=== PATIENT | male | born 1965 | race Two or more races ===

== ENCOUNTER 2019-02-19 22:50 | Emergency (ER) | payer OTHER ==
[~2019-02-19] VITALS: Ht 172.7 cm; Wt 61.7 kg
[2019-02-19 23:51] VITALS: BP 131/81
[2019-02-19] MEDS ORDERED: GELATIN SPONGE,ABSORBABLE 1 SPONGE SPONGE TP ONE (23:55)
[2019-02-19] MEDS ORDERED: KETOROLAC TROMETHAMINE INJ 60 MG/2 ML VIAL IM ONE (23:56)
[2019-02-20] MEDS ORDERED: KETOROLAC TROMETHAMINE INJ 60 MG/2 ML VIAL IM ONE
[2019-02-20] MEDS ORDERED: TDAP [DIPH/PERTUSSIS/TET] 0.5 ML VIAL IM ONE ×2 (00:10→00:30)
--- NOTE | 2019-02-20 00:19 | NUR ---
Patient discharged to home in stable condition. Written and verbal after care instructions given. Patient verbalizes understanding of instruction. Pt ambulatory with a steady gait
== END 2019-02-20 00:20 | disposition home or self-care (01) ==
LOC: ER 22:55
DX: S61.210A Laceration without foreign body of right index finger without damage to nail, initial encounter (principal); M19.90 Unspecified osteoarthritis, unspecified site; W25.XXXA Contact with sharp glass, initial encounter; Y93.89 Activity, other specified; Y92.89 Other specified places as the place of occurrence of the external cause; Y99.8 Other external cause status
CPT/HCPCS: 90471; 90715; 96372; 99283; A6403; J1885

== ENCOUNTER 2019-03-22 10:25 | Emergency (ER) | payer OTHER ==
[~2019-03-22] VITALS: Ht 170.2 cm; Wt 59.0 kg
[2019-03-22 10:32] VITALS: BP 142/78
== END 2019-03-22 10:46 | disposition home or self-care (01) ==
LOC: ER 10:26
DX: Z48.00 Encounter for change or removal of nonsurgical wound dressing (principal); M19.90 Unspecified osteoarthritis, unspecified site

== ENCOUNTER 2019-06-09 13:41 | Emergency (ER) | payer OTHER ==
[~2019-06-09] VITALS: Ht 170.2 cm; Wt 59.0 kg
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
--- NOTE | 2019-06-09 16:19 | NUR ---
CALLED [facility] [phone] [facility]
[2019-06-09] MEDS ORDERED: LIDOCAINE 1% INJ 50 ML MDV IJ ONE ×2 (17:00→17:01)
[2019-06-09] MEDS ORDERED: FENTANYL PF 100MCG/2ML AMPUL ONE (18:22)
--- NOTE | 2019-06-09 18:28 | NUR ---
DR ERNST AT BEDSIDE FOR HEMOTOMA BLOCK
[2019-06-09] MEDS ORDERED: FENTANYL PF 100MCG/2ML AMPUL IV ONE (18:30)
--- NOTE | 2019-06-09 19:15 | NUR ---
IV removed. Catheter intact and site benign. Pressure and 4x4 applied to site. No bleeding noted.Patient discharged to home in stable condition. Written and verbal after care instructions given. Patient verbalizes understanding of instruction.
[2019-06-09 19:19] VITALS: BP 144/100
== END 2019-06-09 19:22 | disposition home or self-care (01) ==
LOC: ER 13:43
DX: S52.542A Smith's fracture of left radius, initial encounter for closed fracture (principal); M19.90 Unspecified osteoarthritis, unspecified site; F41.9 Anxiety disorder, unspecified; V49.49XA Driver injured in collision with other motor vehicles in traffic accident, initial encounter; Y93.89 Activity, other specified; Y92.413 State road as the place of occurrence of the external cause; Y99.8 Other external cause status
CPT/HCPCS: 25605; 73090; 73130; 99284; J3010; J3490; J7030

== ENCOUNTER 2022-03-19 19:17 | Emergency (ER) | payer OTHER ==
[~2022-03-19] VITALS: Ht 170.2 cm; Wt 57.2 kg
[2022-03-19 20:27] VITALS: BP 146/81
[2022-03-19] MEDS ORDERED: CEPH500C2 PO (21:03)
== END 2022-03-19 21:12 | disposition home or self-care (01) ==
LOC: ER 19:19
DX: L03.011 Cellulitis of right finger (principal); M19.90 Unspecified osteoarthritis, unspecified site; F41.9 Anxiety disorder, unspecified; Z79.899 Other long term (current) drug therapy

== ENCOUNTER 2022-05-20 10:54 | Emergency (ER) | payer OTHER ==
[~2022-05-20] VITALS: Ht 172.7 cm; Wt 65.8 kg
[~2022-05-20 10:54] MED LIST: CEPH500C2 PO
[2022-05-20 11:07] VITALS: BP 117/82
[2022-05-20] MEDS ORDERED: IBUPROFEN 600 MG TABLET ONE (11:25)
[2022-05-20] MEDS: IBUPROFEN 600 MG TABLET PO ONE (11:27)
--- NOTE | 2022-05-20 11:30 | NUR ---
MOTRIN PO GIVEN INDICATED, REYMUNDO WELL
[2022-05-20] MEDS ORDERED: IBUP-1953 PO (12:07)
--- NOTE | 2022-05-20 12:10 | NUR ---
Patient discharged to home in stable condition. Written and verbal after care instructions given. Patient verbalizes understanding of instruction.
[2022-05-20] MEDS ORDERED: TYL2T PO (12:12)
== END 2022-05-20 12:10 | disposition home or self-care (01) ==
LOC: ER 11:02
DX: S60.031A Contusion of right middle finger without damage to nail, initial encounter (principal); F41.9 Anxiety disorder, unspecified; Z79.899 Other long term (current) drug therapy; W22.8XXA Striking against or struck by other objects, initial encounter; Y93.89 Activity, other specified; Y92.89 Other specified places as the place of occurrence of the external cause; Y99.8 Other external cause status
CPT/HCPCS: 73140-TC